=== PATIENT | male | born 1955 | race Caucasian/White ===

== ENCOUNTER 2018-04-23 12:22 | Emergency (ER) | payer OTHER ==
[~2018-04-23] VITALS: Ht 180.3 cm; Wt 84.6 kg
[~2018-04-23 12:22] MED LIST: ACET325T9 PO; AMLO10TA2 PO; ASPI-630 PO; CARV6.252 PO; CEFD300C PO; FERR325T3 PO; FURO40TA4 PO; HYDR-971 PO; MULT-658 PO; PANT20TA3 PO; SIMV20TA3 PO; SPIR100T2 PO; SUCR1TAB35 PO; TRAM50TA PO
[2018-04-23] MEDS ORDERED: oxyCODONE/APAP 10/325 1 TAB TABLET PO ONE (13:00)
[2018-04-23] MEDS ORDERED: OXYC-328 PO (13:07)
--- NOTE | 2018-04-23 13:07 | RAD ---
Indication: Fell and hit left arm. Pain. TECHNIQUE: 4 views of the left shoulder COMPARISON: None FINDINGS: Punctate calcific densities seen adjacent to the greater tubercle of the humerus. Mild narrowing seen at acromioclavicular joint with articular sclerosis suggesting acromioclavicular joint arthritis.. Visualized left lung is clear. IMPRESSION: 1. Punctate calcific density adjacent to the greater tubercle may represent an avulsion fracture. MRI of the shoulder recommended if clinically indicated. Electronically signed by: Ton Mary DO (04/23/2018 1:03 PM) [facility]
[2018-04-23 13:10] VITALS: BP 121/64
--- NOTE | 2018-04-23 14:23 | ED.ADGEN ---
Past History Past Medical History: Arthritis, Bronchitis, CAD, COPD, GERD, High Cholesterol , Heart Disease, Hypertension, Hepatitis, Sinusitis, Vascular Disease, Other Past Surgical History: Angioplasty, Other Smoking: Quit Greater Than 1 Year Alcohol Use: Sober Additional Alcohol Information: hx alcoholism, no drinking x 3 years Drug Use: Marijuana Adult General Chief Complaint Chief Complaint Left bicep pain HPI HPI Patient is a 62-year-old right handed male with history of CAD and PAD, currently on Plavix who presents with left bicep pain, swelling and bruising after accidentally hitting large patch of ice off of left arm. Patient also reports left shoulder pain. He is taking tramadol with little relief on exam, the patient's left eye separation is approximately 30% more swollen than right. There is purpura, with good pulses. There is no paresthesias, or pain with passive range of motion suggestive of compartment syndrome. There is no gross deformity or shortening of muscle to suggest tear. Patient denies other injuries her complaints at this time. [] Review of Systems Review of Systems Review symptoms as per history of present illness. All other review symptoms are negative. Current Medications Current Medications Current Medications Medications (Trade) Dose Ordered Sig/Valerio Start Time Stop Time Status Last Admin Dose Admin Oxycodone/ Acetaminophen (Percocet 10/325) 1 tab 1X ONCE 04/23/18 13:00 04/23/18 13:01 DC 04/23/18 12:58 1 TAB Allergies Allergies Allergies Coded Allergies Type Severity Reaction Last Updated Verified No Known Drug Allergies 04/23/18 No Physical Exam Physical Exam Constitutional: Well developed, well nourished, no acute distress, non-toxic appearance. [] HENT: Normocephalic, atraumatic, bilateral external ears normal, oropharynx moist, no oral exudates, nose normal. [] Eyes: PERRLA, EOMI, conjunctiva normal, no discharge. [] Back: No tenderness. [] Extremities: Left upper extremity, diffuse swelling of left arm approximately 30 %, pain and bruising present soft tissue tenderness. Min pain on passive range of motion. No gross deformity or shortening of muscle to suggest tendon or bicep rupture. 2+ radial pulse symmetric.[]. [] Neurologic: Left ipper extremity, no motor weakness or loss of sensation.[] Current Patient Data Vital Signs Vital Signs Date Time Temp Pulse Resp B/P (MAP) Pulse Ox O2 Delivery O2 Flow Rate FiO2 04/23/18 13:10 70 18 121/64 (83) 95 Room Air 04/23/18 12:22 97.8 EKG EKG [] Radiology/Procedures Radiology/Procedures [Left shoulder x-ray: Possible avulsion fraction of humeral head] Course & Med Decision Making Course & Med Decision Making Pertinent Labs and Imaging studies reviewed. (See chart for details) [She placed in sling, pain address. Patient instructed to follow-up with PCP may require MRI of shoulder and bicep. Also discussed following up with cardiology and internal Plavix. I reviewed signs and symptoms of possible compartment syndrome. Return precautions reviewed.] Final Impression Final Impression [1.Left bicep hematoma ] Dragon Disclaimer Dragon Disclaimer This electronic medical record was generated, in whole or in part, using a voice recognition dictation system. CODY STOKES DO Apr 23, 2018 14:23
== END 2018-04-23 13:10 | disposition home or self-care (01) ==
LOC: ER 12:22
DX: S40.012A Contusion of left shoulder, initial encounter (principal); M19.90 Unspecified osteoarthritis, unspecified site; I25.10 Atherosclerotic heart disease of native coronary artery without angina pectoris; J44.9 Chronic obstructive pulmonary disease, unspecified; K21.9 Gastro-esophageal reflux disease without esophagitis; E78.00 Pure hypercholesterolemia, unspecified; I11.9 Hypertensive heart disease without heart failure; Z98.61 Coronary angioplasty status; Z87.891 Personal history of nicotine dependence; W22.8XXA Striking against or struck by other objects, initial encounter; Y93.89 Activity, other specified; Y99.8 Other external cause status; Y92.89 Other specified places as the place of occurrence of the external cause
CPT/HCPCS: 73030; 99284

== ENCOUNTER → 2019-12-02 | Outpatient (CLI) | payer MEDICARE ==
[~2019-12-02] MED LIST changes: -AMLO10TA2 PO; +AMLO10TA8 PO; -CARV6.252 PO; +CARV6.2541 PO; +HYDR-3165 PO; -HYDR-971 PO; +OXYC1TAB22 PO; +SIMV20TA18 PO; -SIMV20TA3 PO; -SPIR100T2 PO; +SPIR100T4 PO
--- NOTE | 2019-12-02 23:34 | RAD ---
PA and lateral chest. HISTORY: Cough, congestion PA and lateral views of the chest were compared with a study from October 2016. Lungs are free of acute infiltrates. Heart is normal in size. There is no pleural effusion. Has been no change from the prior study. IMPRESSION: 1. No acute chest disease. Electronically signed by: Cristian Martin MD (12/02/2019 11:31 PM) [id number]
== END | disposition home or self-care (01) ==
LOC: RAD 18:00
PROVIDERS: ATTEND Registered Nurse
DX: R05 Cough (principal)
CPT/HCPCS: 71046